=== PATIENT | male | born 1960 | race Caucasian/White ===

== ENCOUNTER 2017-01-16 18:10 | Emergency (ER) | payer MEDICARE, MEDICAID ==
[~2017-01-16] VITALS: Ht 180.3 cm; Wt 63.5 kg
--- NOTE | 2017-01-16 18:20 | NUR ---
PT BIB [facility] C/O L LEG PAIN X4 MONTHS, WORSE TODAY. STATES "I CAN'T WALK TODAY" D/T PAIN. STATES HE HAS EDEMA BUT NO EDEMA NOTED ON EXAM. PAIN 06/03. RESP EVEN UNLABORED. SKIN WARM NONDIAPHORETIC. CAP REFILL WNL. IN ER BED 15. Addendum: 01/16/17 at 1955 by [facility] CORRECTION: BILATERAL LEG PAIN
[2017-01-16] MEDS ORDERED: IV NS 0.9% 500 ML BAG IV ONE (18:30)
[2017-01-16 18:35] LABS: BASOPHILS # (AUTO) 0.2 /CMM (0.0-0.2); BASOPHILS % (AUTO) 2.7 % (0.0-2.0); EOSINOPHILS # (AUTO) 0.1 /CMM (0.0-0.7); EOSINOPHILS % (AUTO) 0.7 % (0.0-6.0); HEMATOCRIT 45 % (39-51); HEMOGLOBIN 14.3 g/dL (13.5-17.5); LYMPHOCYTES # (AUTO) 1.2 /CMM (0.8-4.8); LYMPHOCYTES % (AUTO) 15.6 % (20.0-44.0); MEAN CORPUSCULAR HEMOGLOBIN 27 PG (26.0-33.0); MEAN CORPUSCULAR HGB CONC 32 g/dl (31.0-36.0); MEAN CORPUSCULAR VOLUME 85 fL (80-96); MONOCYTES # (AUTO) 0.4 /CMM (0.1-1.30); MONOCYTES % (AUTO) 5.7 % (2.0-12.0); NEUTROPHILS % (AUTO) 75.3 % (43.0-81.0); PLATELET COUNT (AUTO) 232 /CMM (150-450); RDW COEFFICIENT OF VARIATION 13.8 (11.5-15.0); RED BLOOD CELL COUNT(AUTO) 5.26 MIL/uL (4.5-6.0); WHITE BLOOD COUNT (AUTO) 7.9 K/uL (4.3-11.0)
[2017-01-16 18:43] LABS: CALCIUM, SERUM 9.2 mg/dL (8.5-10.1); POTASSIUM 4.5 mmol/L (3.5-5.1)
[2017-01-16] MEDS ORDERED: IV NS 0.9% 500 ML IV ONE (18:43)
[2017-01-16] MEDS ORDERED: IV SET PRIMARY 1 EA INFUS.SET MC ONE (18:43)
[2017-01-16] MEDS ORDERED: IOHEXOL-300 100 ML VIAL IV ONE (19:10)
[2017-01-16] MEDS ORDERED: CT SWABBABLE VALVE TRANS SET 1 EA INFUS.SET MC ONE (19:10)
[2017-01-16] MEDS ORDERED: IV NS 0.9% 250 ML IV ONE (19:10)
[2017-01-16] MEDS ORDERED: ACETAMINOPHEN ES 500 MG TABLET ONE (19:13)
[2017-01-16] MEDS ORDERED: HYDROCODONE/APAP 5/325MG 1 EACH TABLET ONE (19:19)
--- NOTE | 2017-01-16 19:26 | NUR ---
pt c/o pain. verbal order obtained for tylenol 1000mg. pt refused tylenol. notified. order obtained for norco 5/325. offered to pt; pt refuses stating "coming off dilaudid, norco 5 wont help. i won't take it if it's only 5". notified. norco wasted in pyxis with inna quiles
--- NOTE | 2017-01-16 19:29 | NUR ---
PT TRANSPORTED TO CT IN STABLE CONDITION
[2017-01-16] MEDS ORDERED: HYDROCODONE/APAP 5/325MG 1 EACH TABLET PO ONE (19:30)
[2017-01-16 20:16] LABS: INR 1.04 (0.87-1.13); PROTHROMBIN TIME 11.2 SECS (9.5-12.7)
[2017-01-16] MEDS ORDERED: ENOXAPARIN SODIUM 60 MG/0.6 ML DISP.SYRIN SQ ONE ×2 (21:30→21:38)
--- NOTE | 2017-01-16 21:30 | NUR ---
PT RESTING QUIETLY, ALL NEEDS ATTENDED TO. NAD NOTED.
--- NOTE | 2017-01-16 21:39 | NUR ---
I SPOKE WITH PATIENT REGARDING CONSENT FOR TRANSFER TO [facility]. I SPOKE TO CHARGE NURSE AT [facility], PATIENT ASSIGNED TO ROOM 223.
--- NOTE | 2017-01-16 21:40 | NUR ---
PAGED DR KERRI DUARTE FOR ADMISSION AT [facility].
--- NOTE | 2017-01-16 21:43 | NUR ---
CALLED [facility] FOR TRANSPORTATION GOING TO [facility] ETA [id number]
--- NOTE | 2017-01-16 22:45 | NUR ---
RN TO RN REPORT CAN BE GIVEN AT
--- NOTE | 2017-01-16 23:06 | NUR ---
PT RESTING QUIETLY, ASLEEP, EASILY AROUSABLE. VSS. AWAITING TRANSPORT TO [facility] FOR ADMISSION. REPORT CALLED TO [facility] TRANG. Addendum: 01/16/17 at 2308 by [facility] [place] TRANG'S NAME IS SHANNON. PT GOING TO ROOM 224
[2017-01-17 00:02] VITALS: BP 105/61
--- NOTE | 2017-01-17 00:02 | NUR ---
[facility]. ALL BELONGINGS AND PAPERWORK WITH PT.
== END 2017-01-17 00:04 | disposition short-term general hospital (02) ==
LOC: ER 18:12
DX: I82.403 Acute embolism and thrombosis of unspecified deep veins of lower extremity, bilateral (principal); J98.2 Interstitial emphysema; G89.29 Other chronic pain; I10 Essential (primary) hypertension; I26.99 Other pulmonary embolism without acute cor pulmonale; C14.0 Malignant neoplasm of pharynx, unspecified
CPT/HCPCS: 36415; 70491; 71010; 71250; 80048; 85025; 85730; 93970; 96372; 99285; A4606; J1650; J7040; J7050; Q9967; Z7610